=== PATIENT | female | born 1990 | race Hispanic/Latino ===

== ENCOUNTER 2022-03-18 08:57 | Emergency (ER) | payer OTHER ==
[~2022-03-18] VITALS: Ht 154.9 cm; Wt 73.4 kg
[2022-03-18 09:56] LABS: BASO # 0.1 10^3/uL (0.0-0.2); BASO % 0.9 % (0.0-1.0); EOS % 0.4 % (0.0-3.0); HEMATOCRIT 42.3 % (36.0-47.0); HEMOGLOBIN 13.9 g/dl (12.0-15.5); LYMPH # 1.7 10^3/uL (1.5-5.0); MEAN CORPUSCULAR HEMOGLOBIN 30.8 pg (27.0-33.0); MEAN CORPUSCULAR HGB CONC 32.9 g/dl (32.0-36.5); MEAN CORPUSCULAR VOLUME 93.8 fl (80.0-96.0); MONO # 0.5 10^3/uL (0.0-0.8); MONO % 6.9 % (2.0-8.0); NEUTROPHILS # 4.6 10^3/uL (1.5-8.5); NEUTROPHILS % 66.4 % (36.0-66.0); PLATELET COUNT, AUTOMATED 271 10^3/uL (150-450); RED BLOOD COUNT 4.51 10^6/uL (4.00-5.40)
[2022-03-18 10:32] LABS: BLOOD UREA NITROGEN 10 MG/DL (7-18); CALCIUM LEVEL 8.5 MG/DL (8.5-10.1); CARBON DIOXIDE LEVEL 28 MEQ/L (21-32); CHLORIDE LEVEL 110 MEQ/L (98-107); GLOMERULAR FILTRATION RATE > 60.0 (>60); GLUCOSE, FASTING 87 MG/DL (70-100); HCG, SERUM QUANTITATIVE 4 MIU/ML; POTASSIUM SERUM 4.8 MEQ/L (3.5-5.1); SODIUM LEVEL 143 MEQ/L (136-145)
[2022-03-18 11:44] VITALS: BP 110/73
== END 2022-03-18 11:52 | disposition home or self-care (01) ==
LOC: M ED 08:57
DX: N93.9 Abnormal uterine and vaginal bleeding, unspecified (principal)

== ENCOUNTER → 2022-11-01 | Outpatient (CLI) | payer OTHER | LOC: M RAD 12:55 | PROVIDERS: ATTEND Advanced Practice Midwife | DX: Z36.89 Encounter for other specified antenatal screening (principal); Z3A.31 31 weeks gestation of pregnancy ==

== ENCOUNTER 2022-12-16 07:33 | Inpatient (IN) | payer OTHER ==
[2022-12-16] VITALS (29 sets, daily range): BP systolic 98–129; BP diastolic 58–86
[~2022-12-16] VITALS: Ht 154.9 cm; Wt 87.5 kg
[2022-12-16] MEDS ORDERED: FLUO0.05 (08:50)
[2022-12-16] MEDS ORDERED: PRENTAB9 PO (08:50)
[2022-12-16] MEDS ORDERED: CALC260T PO (08:50)
[2022-12-16] MEDS ORDERED: HOME MED LIST COMPLETE! XX SCH (08:55)
[2022-12-16] MEDS ORDERED: LACTATED RINGER'S 1000 ML IV STA (09:17)
[2022-12-16] MEDS ORDERED: LR 1,000 ML IV SCH (09:20)
[2022-12-16] MEDS ORDERED: CARBOPROST TROMETHAMINE 250 MCG/ML AMP IM PRN (09:20)
[2022-12-16] MEDS ORDERED: TRANEXAMIC ACID INJection 1,000 MG in NS 100 ML IV PRN (09:20)
[2022-12-16] MEDS ORDERED: OXYTOCIN INJ 10UNITS/ML 1ML VIAL IM PRN (09:20)
[2022-12-16] MEDS ORDERED: OXYTOCIN DRIP 30 UNITS in IV 1 EA IV SCH (09:20)
[2022-12-16] MEDS ORDERED: OXYTOCIN DRIP 30 UNITS in IV 1 EA IV PRN ×6 (09:20)
[2022-12-16] MEDS ORDERED: LIDOCAINE 1% MDV 20ML VIAL INFIL PRN (09:20)
[2022-12-16] MEDS ORDERED: METHYLERGONOVINE MALEATE 0.2MG/ML 1ML VIAL IM PRN (09:20)
[2022-12-16] MEDS ORDERED: OXYTOCIN INJ 10UNITS/ML 1ML VIAL IV PRN (09:20)
[2022-12-16] MEDS: LR 1,000 ML IV SCH ×2 (09:59→18:13)
[2022-12-16 10:10] LABS: HEMATOCRIT 36.2 % (36.0-47.0); HEMOGLOBIN 11.3 g/dl (12.0-15.5); MEAN CORPUSCULAR HEMOGLOBIN 27.4 pg (27.0-33.0); MEAN CORPUSCULAR HGB CONC 31.2 g/dl (32.0-36.5); MEAN CORPUSCULAR VOLUME 87.7 fl (80.0-96.0); PLATELET COUNT, AUTOMATED 200 10^3/uL (150-450); RED BLOOD COUNT 4.13 10^6/uL (4.00-5.40); WHITE BLOOD COUNT 9.5 10^3/uL (4.0-10.0)
[2022-12-16] MEDS ORDERED: EPIDURAL/PCA KEYS XX PRN (20:45)
[2022-12-16] MEDS ORDERED: diphenhydrAMINE 50MG/ML VIAL IV PRN (20:45)
[2022-12-16] MEDS ORDERED: ePHEDrine SULFATE 25 MG/5 ML(5MG/ML) SYRINGE IVP PRN (20:45)
[2022-12-16] MEDS ORDERED: NALOXONE INJ 0.4MG/1ML VIAL IV PRN (20:45)
[2022-12-16] MEDS ORDERED: ONDANSETRON 4MG 2ML VIAL IV PRN (20:45)
[2022-12-16] MEDS ORDERED: LR 500 ML IV PRN (20:45)
[2022-12-16] MEDS ORDERED: FENTANYL/ROPIVACAINE/NACL BAG 100 ML EPIDURAL SCH (20:45)
[2022-12-16] MEDS ORDERED: FENTANYL 2MCG/ML ROPIVACAINE 0.2% IN 0.9% NACL 100ML IVBAG As Ordered ONE (20:59)
[2022-12-16] MEDS ORDERED: DOCUSATE SODIUM 100MG CAPSULE PO PRN (22:40)
[2022-12-16] MEDS ORDERED: DIBUCAINE 1% OINTMENT 30GM TOP PRN (22:40)
[2022-12-16] MEDS: IBUPROFEN 800 MG TAB PO PRN (23:00)
[2022-12-16] MEDS: ACETAMINOPHEN 500 MG TAB PO PRN (23:56)
[2022-12-17] MEDS: ACETAMINOPHEN 500 MG TAB PO PRN ×2 (05:07→14:41)
[2022-12-17] MEDS: PRENATAL VITAMINS CHEWABLE TABLET PO SCH (08:10)
[2022-12-17] MEDS: IBUPROFEN 800 MG TAB PO PRN ×2 (08:10→17:47)
[2022-12-17 17:57] VITALS: BP 109/68
[2022-12-18 06:00] VITALS: BP 111/57
[2022-12-18] MEDS: PRENATAL VITAMINS CHEWABLE TABLET PO SCH (08:07)
== END 2022-12-18 13:25 | disposition home or self-care (01) | DRG 807 ==
LOC: M LDI 07:33 → M OBS 23:11
PROVIDERS: ADMIT Obstetrics & Gynecology; ATTEND Obstetrics & Gynecology
PROC: 10E0XZZ Delivery of Products of Conception, External Approach (ICD-10-PCS; principal; 2022-12-16)
PROC: 0KQM0ZZ Repair Perineum Muscle, Open Approach (ICD-10-PCS; 2022-12-16)
PROC: 10907ZC Drainage of Amniotic Fluid, Therapeutic from Products of Conception, Via Natural or Artificial Opening (ICD-10-PCS; 2022-12-16)
DX: O99.354 Diseases of the nervous system complicating childbirth (principal); Z37.0 Single live birth; Z3A.39 39 weeks gestation of pregnancy; G43.909 Migraine, unspecified, not intractable, without status migrainosus; O70.1 Second degree perineal laceration during delivery